=== PATIENT | male | born 1980 | race Caucasian/White ===

== ENCOUNTER 2016-11-16 20:42 | Emergency (ER) | payer SELFPAY ==
[2016-11-16] MEDS ORDERED: Lidocaine 1% Inj (20ml) INFIL STA (21:15)
[2016-11-16] MEDS ORDERED: Amoxicillin-Clav 875-125 mg Tab PO STA (21:16)
[2016-11-16] MEDS ORDERED: Lidocaine 1% Inj (20ml) ONE (21:30)
[2016-11-16] MEDS ORDERED: Morphine 4 MG/ML VIAL ONE (21:30)
[2016-11-16] MEDS ORDERED: Amoxicillin-Clav 875-125 mg Tab PO ONE (21:30)
[2016-11-16 22:39] VITALS: BP 132/76; PULSE 99; RESP 20; TEMP 100.4; O2SAT 96
--- NOTE | 2016-11-16 22:44 | C.PDOC ---
History Of Present Illness 36 year old male presents to the ED with complaints of a painful mass to the left buttock that has been getting larger for three days. Patient has developed a fever today and denies nausea, vomiting, or other complaints at this time. Time Seen by Provider: 11/16/16 21:10 Chief Complaint (Nursing): Abnormal Skin Integrity History Per: Patient History/Exam Limitations: no limitations Onset/Duration Of Symptoms: Days (3 days ) Current Symptoms Are (Timing): Still Present Location Of Injury: Left: Buttock Quality Of Symptoms: Painful Recent travel outside of the [place]: No Past Medical History Reviewed: Historical Data, Nursing Documentation, Vital Signs Vital Signs: Last Vital Signs Temp 100.4 F H 11/16/16 22:54 Pulse 99 H 11/16/16 22:38 Resp 20 11/16/16 22:38 BP 132/76 11/16/16 22:38 Pulse Ox 96 11/16/16 23:19 Family History: States: Unknown Family Hx - Social History Hx Alcohol Use: No Hx Substance Use: No - Immunization History Hx Tetanus Toxoid Vaccination: No Hx Influenza Vaccination: No Hx Pneumococcal Vaccination: No Review Of Systems Constitutional: Positive for: Fever. Negative for: Chills Cardiovascular: Negative for: Chest Pain Respiratory: Negative for: Shortness of Breath Gastrointestinal: Negative for: Nausea, Vomiting, Abdominal Pain, Diarrhea Skin: Positive for: Other (painful mass to the left buttock) Physical Exam - Physical Exam Appears: Non-toxic, No Acute Distress Skin: Warm, Dry, Other (Tender, fluctuant, erythematus mass to the left inner gluteus.) Head: Atraumatic, Normacephalic Eye(s): bilateral: Normal Inspection Oral Mucosa: Moist Neck: Supple Chest: Symmetrical, No Deformity Cardiovascular: Rhythm Regular Respiratory: No Rhonchi, No Wheezing Extremity: Normal ROM, No Tenderness Neurological/Psych: Oriented x3, Normal Speech Gait: Steady ED Course And Treatment O2 Sat by Pulse Oximetry: 96 (room air ) Pulse Ox Interpretation: Normal Progress Note: Patient was given morphine, amoxicillin, and lidocaine 1%. Incision and drainage of the abscess was performed. Patient advised to have wound check in 2 days. Rx given. Patient verbalized understanding. - Incision & Drainage Of Abscess Anesthesia: Lidocaine 1%, With Epi Used During Procedure: Continuous Pulse Oximetry, Cosmetics Presser Prep Used: Sterile Water, Betadine Procedure: Incised W/Scalpel Blade#: (11), Drained Pus, Irrigated Cavity W/ Saline, Probed To Break Up Loculations, Cultures Obtained And Sent To Lab Disposition Counseled Patient/Family Regarding: Diagnosis, Need For Followup, Rx Given - Disposition Referrals: Adelfo Ohara MD [Staff Provider] - Disposition: HOME/ ROUTINE Disposition Time: 22:41 Condition: STABLE Additional Instructions: Keep area clean and dry. May wash gently with soap and water Take antibiotic twice daily and follow up with PCP in 2-3 days for wound check Prescriptions: Amoxicillin/Clavulanate [Augmentin 875 MG-125 MG] 1 tab PO BID #14 tab traMADol [Ultram] 50 mg PO Q8 #20 tab Instructions: Abscess Incision and Drainage (ED) Forms: [employer] ([place]) - POA Present On Arrival: None - Clinical Impression Clinical Impression: Abscess, gluteal, left - Scribe Statement The provider has reviewed the documentation as recorded by the [place] All medical record entries made by the [place] were at my direction and personally dictated by me. I have reviewed the chart and agree that the record accurately reflects my personal performance of the history, physical exam, medical decision making, and the department course for this patient. I have also personally directed, reviewed, and agree with the discharge instructions and disposition.
== END 2016-11-16 23:18 | disposition home or self-care (01) ==
LOC: C.ER 20:42
DX: L02.31 Cutaneous abscess of buttock (principal)
CPT/HCPCS: 10060; 87070; 87181; 96372; 99283; J2270